=== PATIENT | male | born 1995 | race Two or more races ===

== ENCOUNTER 2016-10-10 15:08 | Emergency (ER) | payer SELFPAY ==
[~2016-10-10] VITALS: Ht 167.6 cm; Wt 55.7 kg
[~2016-10-10 15:08] MED LIST: ATARAX,VISTARIL25 MG PO; ESCITALOPRAM OX10 MG PO; LEXAPRO10 MG PO; NAPROSYN500 MG PO; nohome
[2016-10-10] MEDS ORDERED: FLONASE16 G1 BOTH NARES (19:03)
[2016-10-10] MEDS ORDERED: ALLEGRA-D 121 TABLET PO (19:03)
[2016-10-10 19:18] VITALS: BP 113/78
== END 2016-10-10 19:19 | disposition home or self-care (01) ==
LOC: EME 15:08
DX: J02.9 Acute pharyngitis, unspecified (principal); R09.82 Postnasal drip; R59.0 Localized enlarged lymph nodes
CPT/HCPCS: 87651 90; 99281; 99284

== ENCOUNTER 2017-01-16 13:04 | Emergency (ER) | payer OTHER ==
[~2017-01-16] VITALS: Ht 167.6 cm; Wt 57.9 kg
[~2017-01-16 13:04] MED LIST changes: +ALLEGRA-D 121 TABLET PO; +FLONASE16 G1 BOTH NARES
[2017-01-16] MEDS ORDERED: FIORICET 50-301 EACH PO (16:06)
[2017-01-16] MEDS ORDERED: MOTRIN800 MG PO (16:06)
[2017-01-16] MEDS ORDERED: ANTIVERT25 MG PO (16:06)
[2017-01-16] MEDS ORDERED: ZOFRAN ODT4 MG PO (16:06)
[2017-01-16 16:16] VITALS: BP 134/66
== END 2017-01-16 16:17 | disposition home or self-care (01) ==
LOC: EME 13:04
DX: S06.0X0A Concussion without loss of consciousness, initial encounter (principal); V40.5XXA Car driver injured in collision with pedestrian or animal in traffic accident, initial encounter; W22.10XA Striking against or struck by unspecified automobile airbag, initial encounter; F17.200 Nicotine dependence, unspecified, uncomplicated
CPT/HCPCS: 99281; 99284

== ENCOUNTER 2017-01-18 21:27 | Emergency (ER) | payer OTHER ==
[~2017-01-18] VITALS: Ht 167.6 cm; Wt 57.9 kg
[~2017-01-18 21:27] MED LIST changes: +ANTIVERT25 MG PO; +FIORICET 50-301 EACH PO; +MOTRIN800 MG PO; +ZOFRAN ODT4 MG PO
[2017-01-18 21:49] VITALS: BP 119/86
== END 2017-01-18 23:45 | disposition home or self-care (01) ==
LOC: EME 21:27
DX: F07.81 Postconcussional syndrome (principal); V40.5XXA Car driver injured in collision with pedestrian or animal in traffic accident, initial encounter; F17.200 Nicotine dependence, unspecified, uncomplicated
CPT/HCPCS: 99281; 99284

== ENCOUNTER 2017-01-24 17:41 | Emergency (ER) | payer OTHER ==
[~2017-01-24] VITALS: Ht 162.6 cm; Wt 57.1 kg
[2017-01-24 22:06] VITALS: BP 140/82
== END 2017-01-24 22:07 | disposition home or self-care (01) ==
LOC: EME 17:41
DX: F07.81 Postconcussional syndrome (principal); F17.200 Nicotine dependence, unspecified, uncomplicated; V99.XXXD Unspecified transport accident, subsequent encounter
CPT/HCPCS: 70450; 99281; 99285

== ENCOUNTER 2017-08-24 15:16 | Emergency (ER) | payer SELFPAY ==
[~2017-08-24] VITALS: Ht 160 cm; Wt 56.0 kg
[2017-08-24 15:58] LABS: HEMATOCRIT 43.5 % (38.0-50.0); HEMOGLOBIN 14.4 G/DL (12.5-16.6); MCHC 33.1 G/DL (30.0-36.0); MCV 84.6 FL (86-99); PLATELET COUNT 220 K/uL (156-360); RBC DIS.WIDTH-CV 12.5 % (11.8-14.6); RBC DIS.WIDTH-SD 38.5 % (39-53); RED BLOOD COUNT 5.14 M/uL (4.00-5.50)
[2017-08-24 16:10] LABS: CHLORIDE 101 mEq/L (99-109); POTASSIUM 3.7 mEq/L (3.7-5.4); SODIUM 139 mEq/L (136-147)
[2017-08-24 16:12] LABS: GLUCOSE 111 mg/dL (70-99)
[2017-08-24 16:16] LABS: CREATININE 1.1 mg/dL (0.6-1.3); GFR ESTIMATE (CALCULATED) > 59 mL/min/ (58.99-99999)
[2017-08-24 16:17] LABS: UREA NITROGEN (BUN) 15 mg/dL (9-23)
[2017-08-24 17:39] VITALS: BP 129/87
== END 2017-08-24 17:41 | disposition home or self-care (01) ==
LOC: EME 15:16
DX: J10.1 Influenza due to other identified influenza virus with other respiratory manifestations (principal); F32.9 Major depressive disorder, single episode, unspecified; Z91.5 Personal history of self-harm; Z87.891 Personal history of nicotine dependence
CPT/HCPCS: 80048; 81003; 85027; 87502; 99281; 99284

== ENCOUNTER 2017-10-27 20:41 | Emergency (ER) | payer SELFPAY ==
[~2017-10-27] VITALS: Ht 160 cm; Wt 53.6 kg
[2017-10-27 21:52] LABS: HEMATOCRIT 39.2 % (38.0-50.0); HEMOGLOBIN 12.8 G/DL (12.5-16.6); MCH 28.1 PG (29.0-34.0); MCHC 32.7 G/DL (30.0-36.0); MCV 86.2 FL (86-99); PLATELET COUNT 335 K/uL (156-360); RBC DIS.WIDTH-CV 13.3 % (11.8-14.6); RBC DIS.WIDTH-SD 41.2 % (39-53); RED BLOOD COUNT 4.55 M/uL (4.00-5.50); WHITE BLOOD COUNT 6.2 K/uL (4.1-10.2)
[2017-10-27 22:08] LABS: CHLORIDE 108 mEq/L (99-109); SODIUM 142 mEq/L (136-147)
[2017-10-27 22:09] LABS: MAGNESIUM 2.4 mg/dL (1.3-2.7)
[2017-10-27 22:10] LABS: GLUCOSE 88 mg/dL (70-99)
[2017-10-27 22:12] LABS: D-DIMER ELISA < 150.00 ng/mLDDU (<230)
[2017-10-27 22:14] LABS: CREATININE 0.9 mg/dL (0.6-1.3); GFR ESTIMATE (CALCULATED) > 59 mL/min/ (58.99-99999)
[2017-10-27 22:15] LABS: UREA NITROGEN (BUN) 11 mg/dL (9-23)
[2017-10-27 22:15] LABS: TROP-I INTERPRETATION NEGATIVE; TROPONIN-I < 0.01 ng/mL (0.0-0.30)
[2017-10-27 22:58] LABS: THYROTROPIN (TSH) 0.66 MIU/L (0.4-5.5)
[2017-10-27 22:59] LABS: APPEARANCE CLEAR ((CLEAR)); BILIRUBIN NEGATIVE; BLOOD NEGATIVE; COLOR YELLOW ((YELLOW)); GLUCOSE (STRIP) NEGATIVE; KETONES 5; LEUKOCYTES NEGATIVE; NITRITE NEGATIVE; PROTEIN (STRIP) 30
[2017-10-27 23:07] LABS: AMPHETAMINE NEGATIVE (500 ng/mL); BARBITURATES NEGATIVE (200 ng/mL); BENZODIAZEPINES NEGATIVE (150 ng/mL); BUPRENORPHINE NEGATIVE (10 ng/mL); COCAINE NEGATIVE (150 ng/mL); METHADONE NEGATIVE (200 ng/mL); METHAMPHETAMINE NEGATIVE (500 ng/mL); OPIATES (MORPHINE) PRESUMPTIVE POSITIVE (100 ng/mL); OXYCODONE NEGATIVE (100 ng/mL); PHENCYCLIDINE NEGATIVE (25 ng/mL); PROPOXYPHENE NEGATIVE (300 ng/mL); THC CANNABINOIDS NEGATIVE (50 ng/mL); TRICYCLIC ANTIDEPRESSANTS NEGATIVE (300 ng/mL)
[2017-10-27] MEDS ORDERED: INDOCIN50 MG PO (23:25)
[2017-10-27] MEDS ORDERED: VISTARIL50 MG PO (23:25)
[2017-10-27 23:43] VITALS: BP 118/67
== END 2017-10-27 23:46 | disposition home or self-care (01) ==
LOC: EME 20:41
PROVIDERS: Physician Assistant
DX: R07.89 Other chest pain (principal); F41.9 Anxiety disorder, unspecified; R03.0 Elevated blood-pressure reading, without diagnosis of hypertension; F17.200 Nicotine dependence, unspecified, uncomplicated
CPT/HCPCS: 71046; 80048; 81003; 83735; 84443; 84484; 84999; 85027; 85379; 93005; Q0177

== ENCOUNTER 2017-10-31 22:08 | Emergency (ER) | payer SELFPAY ==
[~2017-10-31] VITALS: Ht 160 cm; Wt 56.1 kg
[~2017-10-31 22:08] MED LIST changes: +INDOCIN50 MG PO; +VISTARIL50 MG PO
[2017-10-31 22:51] LABS: HEMATOCRIT 41.1 % (38.0-50.0); HEMOGLOBIN 13.5 G/DL (12.5-16.6); MCH 28.4 PG (29.0-34.0); MCHC 32.8 G/DL (30.0-36.0); MCV 86.5 FL (86-99); PLATELET COUNT 296 K/uL (156-360); RBC DIS.WIDTH-CV 13.2 % (11.8-14.6); RBC DIS.WIDTH-SD 42.2 % (39-53); RED BLOOD COUNT 4.75 M/uL (4.00-5.50); WHITE BLOOD COUNT 7.9 K/uL (4.1-10.2)
[2017-10-31 23:00] LABS: CHLORIDE 104 mEq/L (99-109); POTASSIUM 3.7 mEq/L (3.7-5.4); SODIUM 142 mEq/L (136-147)
[2017-10-31 23:02] LABS: GLUCOSE 95 mg/dL (70-99)
[2017-10-31 23:06] LABS: CREATININE 0.9 mg/dL (0.6-1.3); GFR ESTIMATE (CALCULATED) > 59 mL/min/ (58.99-99999)
[2017-10-31 23:07] LABS: UREA NITROGEN (BUN) 9 mg/dL (9-23)
[2017-10-31 23:14] LABS: TROP-I INTERPRETATION NEGATIVE; TROPONIN-I < 0.01 ng/mL (0.0-0.30)
[2017-11-01 00:18] VITALS: BP 103/62
== END 2017-11-01 00:36 | disposition home or self-care (01) ==
LOC: EME 22:08
DX: F41.9 Anxiety disorder, unspecified (principal); F41.0 Panic disorder [episodic paroxysmal anxiety]; R07.89 Other chest pain; R00.0 Tachycardia, unspecified; R94.31 Abnormal electrocardiogram [ECG] [EKG]; J45.909 Unspecified asthma, uncomplicated; F17.200 Nicotine dependence, unspecified, uncomplicated; F32.9 Major depressive disorder, single episode, unspecified; Z91.5 Personal history of self-harm
CPT/HCPCS: 71046; 80048; 84484; 85027; 93005; 99281; 99282

== ENCOUNTER 2017-11-13 14:30 | Inpatient (IN) | payer OTHER ==
[~2017-11-13] VITALS: Ht 160 cm; Wt 55.3 kg
[2017-11-13 15:08] LABS: BASOPHIL (%) 1.1 % (0-1); BASOPHIL COUNT 0.1 K/uL (0-0.1); EOSINOPHIL (%) 4.3 % (0-5); EOSINOPHIL COUNT 0.2 K/uL (0-0.3); HEMATOCRIT 42.5 % (38.0-50.0); HEMOGLOBIN 14.1 G/DL (12.5-16.6); IMMATURE GRANULOCYTE (%) 0.2 % (0.0-0.7); LYMPHOCYTE (%) 28.2 % (15-42); LYMPHOCYTE COUNT 1.3 K/uL (1.0-2.8); MCH 28.6 PG (29.0-34.0); MCHC 33.2 G/DL (30.0-36.0); MCV 86.2 FL (86-99); MONOCYTE (%) 8.6 % (3-12); MONOCYTE COUNT 0.4 K/uL (0-0.8); NEUTROPHIL (%) 57.6 % (45-76); NEUTROPHIL COUNT 2.6 K/uL (1.8-6.4); PLATELET COUNT 326 K/uL (156-360); RBC DIS.WIDTH-CV 13.1 % (11.8-14.6); RBC DIS.WIDTH-SD 41.1 % (39-53); RED BLOOD COUNT 4.93 M/uL (4.00-5.50); WHITE BLOOD COUNT 4.4 K/uL (4.1-10.2)
[2017-11-13 15:12] LABS: APPEARANCE SL.HAZY ((CLEAR)); BILIRUBIN NEGATIVE; BLOOD NEGATIVE; COLOR YELLOW ((YELLOW)); GLUCOSE (STRIP) NEGATIVE; KETONES 5; LEUKOCYTES TRACE; NITRITE NEGATIVE; PROTEIN (STRIP) 30; SPECIFIC GRAVITY 1.027 (1.000-1.030)
[2017-11-13 15:19] LABS: CHLORIDE 104 mEq/L (99-109); POTASSIUM 4.1 mEq/L (3.7-5.4); SODIUM 140 mEq/L (136-147)
[2017-11-13 15:21] LABS: GLUCOSE 87 mg/dL (70-99)
[2017-11-13 15:24] LABS: SERUM ETHYL ALCOHOL < 10 mg/dL
[2017-11-13 15:25] LABS: CREATININE 0.9 mg/dL (0.6-1.3); GFR ESTIMATE (CALCULATED) > 59 mL/min/ (58.99-99999)
[2017-11-13 15:26] LABS: UREA NITROGEN (BUN) 12 mg/dL (9-23)
[2017-11-13 15:42] LABS: AMPHETAMINE NEGATIVE (500 ng/mL); BARBITURATES NEGATIVE (200 ng/mL); BENZODIAZEPINES NEGATIVE (150 ng/mL); BUPRENORPHINE NEGATIVE (10 ng/mL); COCAINE NEGATIVE (150 ng/mL); METHADONE NEGATIVE (200 ng/mL); METHAMPHETAMINE NEGATIVE (500 ng/mL); OPIATES (MORPHINE) NEGATIVE (100 ng/mL); OXYCODONE NEGATIVE (100 ng/mL); PHENCYCLIDINE NEGATIVE (25 ng/mL); PROPOXYPHENE NEGATIVE (300 ng/mL); THC CANNABINOIDS NEGATIVE (50 ng/mL); TRICYCLIC ANTIDEPRESSANTS NEGATIVE (300 ng/mL)
[2017-11-13 15:46] LABS: EPITHELIAL CELLS 1+ /HPF; MUCUS 4+ /LPF; RED BLOOD CELLS 0-5 /HPF (0-5)
[2017-11-13 15:47] LABS: BACTERIA 1+ /HPF
[2017-11-13 17:10] VITALS: BP 122/76
[2017-11-14 07:38] VITALS: BP 110/55
[2017-11-14 16:08] VITALS: BP 140/65
[2017-11-15 08:01] VITALS: BP 114/63
[2017-11-15 16:07] VITALS: BP 118/61
[2017-11-16 08:21] VITALS: BP 114/60
[2017-11-16 17:04] VITALS: BP 122/64
[2017-11-17 09:19] VITALS: BP 111/62
[2017-11-17 16:35] VITALS: BP 94/52
[2017-11-17 16:39] VITALS: BP 107/57
[2017-11-18 08:01] VITALS: BP 107/67
[2017-11-18 15:24] VITALS: BP 122/58
[2017-11-19 07:45] VITALS: BP 104/57
[2017-11-19 15:53] VITALS: BP 139/74
[2017-11-20 08:22] VITALS: BP 105/60
[2017-11-20 16:20] VITALS: BP 115/63
[2017-11-21 08:05] VITALS: BP 113/52
[2017-11-21 16:46] VITALS: BP 108/58
[2017-11-22 07:55] VITALS: BP 116/53
[2017-11-22] MEDS ORDERED: BUSPAR15 MG PO (09:37)
[2017-11-22] MEDS ORDERED: SERTRALINE HCL100 MG PO (09:37)
== END 2017-11-22 11:06 | disposition home or self-care (01) | DRG 885 ==
LOC: EME 14:30 → EDOF 15:45 → 1WEST 15:45 → ENRESERV 17:03 → 1WEST 17:04
PROVIDERS: Emergency Medicine
DX: F33.9 Major depressive disorder, recurrent, unspecified (principal); F43.23 Adjustment disorder with mixed anxiety and depressed mood; F41.1 Generalized anxiety disorder; R45.851 Suicidal ideations; F17.200 Nicotine dependence, unspecified, uncomplicated
CPT/HCPCS: 80048; 81003; 85025; 90839; 97150 GO; 97165 GO; 99281; 99284; G0480; Q0177